=== PATIENT | male | born 1955 | race Caucasian/White ===

== ENCOUNTER 2018-02-28 16:48 | Emergency (ER) | payer BC, SELFPAY ==
[2018-02-28 16:49] VITALS: BP 120/71; PULSE 100; RESP 16; TEMP 36.6; O2SAT 95; BMI 33.7
[2018-02-28] MEDS: diazePAM 5 MG Tablet PO (17:08)
--- NOTE | 2018-02-28 17:11 | ED.DCSUM_ITS ---
- ER Visit Summary Date of Service: 02/28/18 Chief Complaint: Back pain History of Present Illness: The patient is a 62 M states that on Saturday of this week (postop day 2) he had spinal surgery by Dr. Vega at [facility]. He states that he had a fusion and spinal stenosis surgery. States he is doing well and today he was up and walking. He had a bowel movement yesterday. He arrived home around 1345 hrs. today. States he log rolled over and developed severe pain in the back. He notes intermittent spasms that are excruciating. He denies any radiculopathy. He states that he feels so much better than before the surgery. No fevers. Physical Examination: Afebrile vital signs are stable Gen: Well-nourished well-developed laying on his right side. Head: Normocephalic atraumatic Eyes: Perrl EOMI ENT: TMs clear no rhinorrhea moist mucous membranes Neck: Supple no lymphadenopathy no JVD nontender CVS: Regular rate rhythm no murmurs normal S1-S2 Respiratory: No distress clear to auscultation bilaterally chest nontender Abdomen: Soft nontender nondistended normal bowel sounds no masses Back: Back brace initially in place. Lumbar paraspinal musculature tender to palpation. Extremity: Nontender no edema Skin: Normal color no rash Neuro: alert orientated ?3 CN II-XII intact normal strength sensation Psych: Normal affect normal mood Test Results: [] Emergency Department Course and Treatment: IV was established and the patient received IV fluids, Dilaudid, Zofran, and Valium. Patient still is having back spasms. His pulse ox is down to 89% in between spasms and he was placed on supplemental oxygen. Spoke with the patient he like to be readmitted. I spoke with [facility] transfer line and Dr. Knight was covering his spinal surgeon. Plan is transfer. Impression: 1. Back spasms - status post spinal fusion This note was generated with [employer] dictation software. It may contain incorrect words, spelling, and punctuation that were not noted in review of the chart prior to signing ED Disposition - Plan for ED Patient: Chief Complaint: Back Referrals: Barak Du MD [Primary Care Provider] -
[2018-02-28] MEDS: HYDROmorphone 1 MG/ML Syringe IV (17:25)
[2018-02-28] MEDS: Ondansetron 4 MG/2 ML Vial IV (17:25)
[2018-02-28] MEDS: 0.9% Normal Saline 1,000 ML 150 ML IV (17:26)
[2018-02-28 17:33] LABS: Absolute Lymphocyte Count 1.36 X10^3/ul (0.83-4.51); Absolute Neutrophil Count 9.4 X10^3/uL (2.0-7.7); Basophil# 0.02 X10^3/uL; Basophil% 0.2 % (0-1); Eosinophil# 0.06 X10^3/uL; Eosinophils% 0.5 % (0-5); Hematocrit 38.6 % (40-54); Lymphocyte # 1.36 X10^3/ul (4.0); Lymphocyte % 11.2 % (19-41); Mean Corp Hgb Conc 33.7 g/gl (32-36); Mean Corpuscular Hgb 29.1 pg (27.0-32.0); Mean Corpuscular Volume 86.5 fL (80-94); Mean Platelet Vol. 9.4 fl (6.2-12.0); Monocyte# 1.33 X10^3/uL; Monocyte% 10.9 % (0-10); Neutrophil # 9.36 X10^3/uL (2.7-7.7); Neutrophil % 76.9 % (47-70); POSITIVE COUNT NO; POSITIVE DIFFERENTIAL NO; POSITIVE MORPHOLOGY NO; Platelet Count 201 K/mm3 (150-450); RBC Distribution Width CV 13.5 % (11.6-14.6); RBC Distribution Width SD 42.7 fl (35.1-43.9); Red Blood Count 4.46 M/mm3 (4.6-6.2); White Blood Count 12.2 K/mm3 (4.4-11.0)
[2018-02-28 18:15] LABS: Anion Gap 10 (5-15); BUN 13 mg/dL (7-18); BUN/Creat Ratio 14.9 RATIO (10-20); Calcium,Total 8.7 mg/dL (8.5-10.1); Chloride 100 mmol/L (98-107); Creatinine, Serum 0.87 mg/dL (0.70-1.30); EST Glomerular Filtration Rate 94 mL/min (>60); Est Glom Filt Rate - Afr Amer 113 mL/min (>60); Estimated Creatinine Clearance 82.99 ml/min; Glucose 192 mg/dL (74-106); Potassium 4.4 mmol/L (3.5-5.1); Sodium Level 135 mmol/L (136-145)
[2018-02-28 18:49] VITALS: BP 117/70; PULSE 107; RESP 18; O2SAT 95
[2018-02-28 19:53] VITALS: BP 154/81; PULSE 113; RESP 20; O2SAT 92
[2018-02-28 20:00] VITALS: BP 140/79; PULSE 115; RESP 22; O2SAT 92
== END 2018-02-28 20:45 | disposition short-term general hospital (02) ==
PROVIDERS: Emergency Provider Emergency Medicine; Family Provider Family Medicine; PCP Family Medicine
DX: M62.830 Muscle spasm of back (principal); Z98.890 Other specified postprocedural states; E66.9 Obesity, unspecified; E11.9 Type 2 diabetes mellitus without complications; Z79.4 Long term (current) use of insulin; Z79.891 Long term (current) use of opiate analgesic
CPT/HCPCS: 80048; 85025; 96361; 96374; 96375; 99285; J7030; A4216; J2405

== ENCOUNTER → 2018-11-03 08:09 | Outpatient (CLI) | payer BC, SELFPAY ==
[2018-11-03 09:37] LABS: Erythrocyte Sedimentation Rate 11 mm/hr (0-20)
[2018-11-03 09:39] LABS: Absolute Lymphocyte Count 1.84 X10^3/ul (0.83-4.51); Absolute Neutrophil Count 3.7 X10^3/uL (2.0-7.7); Basophil# 0.03 X10^3/uL; Basophil% 0.5 % (0-1); Eosinophil# 0.16 X10^3/uL; Eosinophils% 2.5 % (0-5); Hematocrit 45.8 % (40-54); Lymphocyte # 1.84 X10^3/ul (4.0); Lymphocyte % 28.9 % (19-41); Mean Corp Hgb Conc 32.8 g/gl (32-36); Mean Corpuscular Volume 88.6 fL (80-94); Mean Platelet Vol. 9.9 fl (6.2-12.0); Monocyte# 0.65 X10^3/uL; Monocyte% 10.2 % (0-10); Neutrophil # 3.66 X10^3/uL (2.7-7.7); Neutrophil % 57.4 % (47-70); Platelet Count 242 K/mm3 (150-450); RBC Distribution Width CV 13.5 % (11.6-14.6); RBC Distribution Width SD 43.6 fl (35.1-43.9); Red Blood Count 5.17 M/mm3 (4.6-6.2); White Blood Count 6.4 K/mm3 (4.4-11.0)
[2018-11-03 09:40] LABS: POSITIVE COUNT NO; POSITIVE DIFFERENTIAL NO; POSITIVE MORPHOLOGY NO
[2018-11-03 10:00] LABS: CRP < 2.90 mg/L (0.0-3.0)
[2018-11-04 20:07] LABS: PROEL- A/G Ratio 1.4 (0.7-1.7); PROEL- Alpha-1 Globulin 0.2 g/dL (0.0-0.4); PROEL- Alpha-2 Globulin 0.7 g/dL (0.4-1.0); PROEL- Beta Globulin 1.2 g/dL (0.7-1.3); PROEL- Gamma Globulin 0.7 g/dL (0.4-1.8); PROEL- Globulin, Total 2.8 g/dL (2.2-3.9); PROEL- TOTAL PROTEIN 6.8 g/dL (6.0-8.5)
== END ==
PROVIDERS: Family Provider Family Medicine; PCP Family Medicine; Referring Provider Nurse Practitioner; Visit Provider Nurse Practitioner
DX: M54.6 Pain in thoracic spine (principal); M89.8X9 Other specified disorders of bone, unspecified site
CPT/HCPCS: 36415; 84165; 85025; 85652; 86140

== ENCOUNTER → 2018-11-06 10:07 | Outpatient (CLI) | payer BC, SELFPAY ==
--- NOTE | 2018-11-06 10:12 | NM_ITS ---
CLINICAL: 62-year-old male with reported history of mid-lower back pain. WHOLE BODY 99m Tc MDP RADIONUCLIDE BONE SCINTIGRAPHY COMPARISON: None available FINDINGS: Following the intravenous administration of 28.0 mCi of 99m Tc MDP, whole body bone images reveal: 1. Increased radiopharmaceutical concentration is identified in the acromioclavicular compartments of both shoulders, right and left wrist articulations, the dorsal aspect of the left ankle, fifth lumbar vertebra. 2. The remaining skeletal structures are scintigraphically unremarkable with normal-appearing renal images and urinary bladder activity identified. NM/Bone Scan Whole Body IMPRESSION: 1. The increase in radiopharmaceutical concentration identified in the bilateral shoulder and wrist articulations, right ankle, the fifth lumbar vertebra is most consistent with degenerative arthritis. 2. There is no definitive typical scintigraphic evidence of skeletal metastatic disease on the current examination. Electronically Signed: Feliz Chase DO at 23:27 EST Tel , Service support ,
== END ==
PROVIDERS: Family Provider Family Medicine; PCP Family Medicine; Referring Provider Orthopaedic Surgery; Visit Provider Orthopaedic Surgery
DX: M54.6 Pain in thoracic spine (principal)
CPT/HCPCS: 78306

== ENCOUNTER → 2019-09-01 09:50 | Outpatient (CLI) | payer BC, SELFPAY ==
--- NOTE | 2019-09-01 09:55 | RAD_ITS ---
STUDY: X-RAY - THORACIC SPINE REASON FOR EXAM: Male, 63 years old. Pain x7 years getting worse TECHNIQUE: 3 view(s) of the thoracic spine were obtained. COMPARISON: None. FINDINGS: Normal kyphosis of the thoracic spine. There is no substantial scoliosis. Normal thoracic vertebrae and endplates. Normal disc space heights. Cannot exclude a sclerotic lesion within the T7 vertebral body best seen on the lateral view though this could represent an overlapping calcification within the mediastinum. The soft tissue structures are unremarkable. RAD/Thoracic Spine 3 Views IMPRESSION: No acute findings, possible sclerotic lesion within the T7 vertebral body Electronically Signed: Isaias James MD at 11:56 EST , Service support ,
== END ==
PROVIDERS: Family Provider Family Medicine; PCP Family Medicine; Referring Provider Nurse Practitioner Family; Visit Provider Nurse Practitioner Family
DX: M54.6 Pain in thoracic spine (principal)
CPT/HCPCS: 72072

== ENCOUNTER 2019-11-26 22:35 | Observation (INO) | payer BC, MEDICARE, SELFPAY ==
[2019-11-26 22:36] VITALS: BP 153/86; PULSE 86; RESP 18; TEMP 36.6; O2SAT 97; BMI 36.6
--- NOTE | 2019-11-26 22:56 | CT_ITS ---
HISTORY: VERTIGO Technique:CT Head or Brain W/O Contrast Injection Number of Images including paperwork:261 Comparison: None available. Findings: CT images of the head were obtained without contrast. Periventricular deep and subcortical white matter disease is present. Paranasal sinuses are clear. The brain is atrophic. Calcific ASCVD involves intracranial arteries. No acute intracranial edema or hemorrhage. No acute abnormality of orbits. Middle ear cavities and mastoid air cells are well aerated. Skull is normal. CT/Brain/Head without Contrast IMPRESSION: No acute intracranial abnormality. Chronic changes as above. ASPECT 10. Individualized dose optimization techniques were used for this CT. at 0004 Reported and signed by: Roel Haro MD Electronically Signed: Roel Haro MD at 0:03 EST Tel , Service support ,
--- NOTE | 2019-11-26 22:57 | EKG12_ITS ---
Test Reason : DIZZY Blood Pressure : / mmHG Vent. Rate : 076 BPM Atrial Rate : 076 BPM P-R Int : 174 ms QRS Dur : 074 ms QT Int : 360 ms P-R-T Axes : 021 -12 067 degrees QTc Int : 405 ms Normal sinus rhythm Nonspecific T wave abnormality Abnormal ECG Confirmed by XENA MORA, GUERO ([id number]), book or script editor AMNA MCNEIL ([id number]) on 11/30/2019 2:22:21 PM Referred By: MANN Confirmed By:CRISTINA MCCALLUM MD
--- NOTE | 2019-11-26 22:59 | ED.DCSUM_ITS ---
History of Present Illness Chief Complaint: Dizziness Informant: Patient, Family Onset: Today Current Severity: Moderate Maximum Severity: Moderate Narrative: Patient presents with dizziness and horizontal eye movements. He states he was sitting in his chair watching television when he suddenly started to feel dizzy. He states his eyes were moving side to side and he cannot control them. Symptoms seem to lenin. He went to bed after about rolled over in bed and symptoms became worsened. He states he had some dry heaves from the symptoms. He denies any recent illness or head injury. He denies history of vertigo. He has no headache. - Past Medical History (1) Diabetes Status: Chronic (2) Back pain Status: Chronic Past Medical History - Allergies and Home Meds Allergies/Adverse Reactions: Allergies metformin Allergy (Verified 11/26/19 22:39) Pain in joints Grciwwe-Phb-Crw Reductase Inhibitor Allergy (Verified 11/26/19 22:39) Pain in joints Prior records reviewed: Yes Lives: Spouse/ Significant Other Smoking Status: Never smoker Review of Systems General: Denies: Chills, Fever Eyes: Reports: - - Patient describes horizontal nystagmus. Denies: Visual changes - bilaterally ENT: Denies: Bilateral ear pain Cardiovascular: Denies: Chest pain, Palpitations Respiratory: Denies: Dyspnea, Cough Gastrointestinal: Denies: Abdominal pain, Nausea, Vomiting, Diarrhea Genitourinary: Denies: Dysuria Skin: Denies: Rash Neurological: Denies: Headache Psych: Denies: Depression Allergy: Denies: Uticaria Physical Exam Vital Signs/Narrative: Vital Signs Temp Pulse Resp BP Pulse Ox 11/26/19 22:36 97.9 F 86 18 153/86 H 97 Inital Vital Signs reviewed: Yes General: Well nourished, Well developed Head: Normocephalic ENT: Moist mucous membranes Neck: Supple Cardiovascular: Regular rate, Regular rhythm Respiratory: No distress, CTA bilaterally Abdomen: Soft, Nontender Extremities: Nontender Skin: Normal color, No rash Neurological: Alert, Oriented x3, Normal Strength, Normal Sensation, - - Normal svidws-la-escq testing. Psychological: Normal affect Diagnostic/Tx/Re-eval Impressions Brain CT 11/26/19 22:56 IMPRESSION: No acute intracranial abnormality. Chronic changes as above. ASPECT 10. Individualized dose optimization techniques were used for this CT. at 0004 Reported and signed by: Roel Haro MD Electronically Signed: Roel Haro MD at 0:03 EST Tel , Service support , 11/26/19 22:56 Brain/Head without Contrast [CT] Stat Laboratory Results 11/26/19 11/26/19 23:20 23:20 WBC 8.6 RBC 4.69 Hgb 13.8 Hct 41.6 MCV 88.7 MCH 29.4 MCHC 33.2 RDW Std Deviation 43.4 RDW Coeff of Te 13.4 Plt Count 284 MPV 9.6 Immature Gran % (Auto) 4.100 H Neut % (Auto) 62.0 Lymph % (Auto) 22.8 Bertie % (Auto) 8.5 Eos % (Auto) 1.9 Baso % (Auto) 0.7 Absolute Neuts (auto) 5.3 Absolute Lymphs (auto) 1.95 Nucleated RBC % 0 Sodium 138 Potassium 4.0 Chloride 106 Carbon Dioxide 26.0 Anion Gap 6 BUN 18 Creatinine 0.95 Estim Creat Clear Calc 74.00 Est GFR (MDRD) Af Amer 102 Est GFR (MDRD) Non-Af 84 BUN/Creatinine Ratio 19.0 Glucose 219 H Calcium 8.4 L - Medical Decision Making Patient was initially given IV fluids, Zofran, and Ativan. On repeat evaluation he reported nearly no improvement in his vertigo symptoms. He was given p.o. Antivert. After 40 minutes patient continues to have significant vertigo. I will speak with hospitalist regarding admission and further treatment. ED Disposition - Plan for ED Patient: Disposition: Acute Care Hospital [facility] Diagnosis: Vertigo
[2019-11-26] MEDS: 0.9% Normal Saline 1,000 ML 150 ML IV (23:19)
[2019-11-26] MEDS: Ondansetron 4 MG/2 ML Vial IV (23:20)
[2019-11-26] MEDS: LORazepam 2 MG/ML Syringe 0.5 MG IV (23:21)
[2019-11-26 23:33] LABS: Absolute Lymphocyte Count 1.95 X10^3/uL (0.83-4.51); Absolute Neutrophil Count 5.3 X10^3/uL (2.0-7.7); Basophil# 0.06 X10^3/uL; Basophil% 0.7 % (0-1); Eosinophil# 0.16 X10^3/uL; Eosinophils% 1.9 % (0-5); Hematocrit 41.6 % (40-54); Hemoglobin 13.8 g/dL (13.0-16.5); Lymphocyte # 1.95 X10^3/ul (4.0); Lymphocyte % 22.8 % (19-41); Mean Corp Hgb Conc 33.2 g/dL (32-36); Mean Corpuscular Hgb 29.4 pg (27.0-32.0); Mean Corpuscular Volume 88.7 fL (80-94); Mean Platelet Vol. 9.6 fl (6.2-12.0); Monocyte# 0.73 X10^3/uL; Monocyte% 8.5 % (0-10); NRBC Flagged by Analyzer 0 % (0-5); Neutrophil # 5.31 X10^3/uL (2.7-7.7); Platelet Count 284 K/mm3 (150-450); RBC Distribution Width CV 13.4 % (11.6-14.6); RBC Distribution Width SD 43.4 fl (35.1-43.9); Red Blood Count 4.69 M/mm3 (4.6-6.2); White Blood Count 8.6 K/mm3 (4.4-11.0)
[2019-11-26 23:48] LABS: Anion Gap 6 (5-15); BUN 18 mg/dL (7-18); Calcium,Total 8.4 mg/dL (8.5-10.1); Chloride 106 mmol/L (98-107); Creatinine, Serum 0.95 mg/dL (0.70-1.30); EST Glomerular Filtration Rate 84 mL/min (>60); Est Glom Filt Rate - Afr Amer 102 mL/min (>60); Glucose 219 mg/dL (74-106); Sodium Level 138 mmol/L (136-145)
[2019-11-27] VITALS (9 sets, daily range): BP systolic 115–165; BP diastolic 71–85; PULSE 72–93; RESP 16–17; TEMP 35.9–37; O2SAT 96–98; BMI 36.2; BMI 36.3
[2019-11-27] MEDS: Meclizine HCl 25 MG Tablet PO ×3 (00:28→13:17)
--- NOTE | 2019-11-27 01:16 | PCM.HP.STD ---
Problem List (1) Vertigo Status: Acute History of Present Illness Date of Admission: 11/27/19 Chief Complaint: vertigo The patient is a 64 year old M with a significant history of chronic back pain; hypertension and diabetes who presents emergency department with 1 day history of worsening vertigo. His vertiginous symptoms worsened when he moved in the bed. Associated with his symptoms is twitching of his eyes; and nausea with dry heaving. He denies any recent upper respiratory infection although. Although his reported that patient had nasal congestion and used nasal spray; patient reported that his nose has only been dry without any congestion. At the emergency department patient required Ativan; Antivert; ondansetron and Phenergan. CT of the head showed chronic changes without any acute abnormality. Past Medical History Past Medical History (Chronic Problems): Chronic Problems Diabetes (Chronic) Back pain (Chronic) Allergies metformin Allergy (Verified 11/26/19 22:39) Pain in joints Cyzhctn-Ear-Tls Reductase Inhibitor Allergy (Verified 11/26/19 22:39) Pain in joints Home Medications: Ambulatory Orders Medication Instructions Recorded Insulin Glargine,Hum.rec.anlog 50 unit SQ QHS 02/28/18 [Basaglar Kwikpen U-100] Losartan Potassium [Cozaar] 50 mg PO DAILY 02/28/18 Pioglitazone [Actos] 45 mg PO DAILY 02/28/18 Diclofenac Sodium 75 mg PO BID 11/26/19 Pregabalin [Lyrica] 100 mg PO BID 11/26/19 Surgical History: cholecystectomy, - - Spinal fusion. Lives: Spouse/ Significant Other Smoking Status: Never smoker Alcohol: None - *Family History Maternal History Items: Cancer - Lungs, Diabetes Paternal History Items: - - Reportedly his father left home when patient was 4 years old so patient does not know paternal medical history. Review of Systems Constitutional: Denies: Chills, Fever, Weight Change HEENT: Denies: Head Aches, Sinus Congestion, Sinus Drainage Cardiovascular: Denies: Chest Pain, Palpitations Respiratory: Denies: Cough, Shortness of breath at rest, Sputum production Gastrointestinal: Reports: Nausea. Denies: Abdominal Pain, Vomiting Genitourinary: Denies: Dysuria Musculoskeletal: Denies: Joint Pain, Joint Tenderness Skin: Denies: Rash, Wounds Neurological: Denies: Numbness, Tingling, Focal weakness Psychiatric: Denies: Anxiety, Depression, Homicidal Ideations, Suicidal Ideations Hematologic/ Lymphatic: Denies: Easy Bruising, Easy Bleeding VTE Information - Inpt Only VTE Present on Admission: No VTE Mechan Device Prophylaxis: None VTE Pharm Prophylaxis ordered?: Yes Patient Problems: Active and Suspected Problems Vertigo (Acute) - Physical Exam Vitals/I&O's: Vital Signs Temp Pulse Resp BP Pulse Ox 97.9 F 86 18 153/86 H 97 11/26/19 22:36 11/26/19 22:36 11/26/19 22:36 11/26/19 22:36 11/26/19 22:36 Oxygen Delivery Method Room Air Weight: 109.1 kg Body Mass Index (BMI) 36.6 General: Alert, Oriented x3, Cooperative HEENT: Atraumatic, PERRLA, EOMI, Normocephalic Neck: Supple, No JVD, Negative Carotid Bruits Lungs: Clear to auscultation, Normal air movement Cardiovascular: Regular rate, Regular Rhythm, Normal S1, Normal S2, No murmurs Abdomen: Bowel Sounds Present, Soft, Non Tender Extremities: No edema, Capillary Refill Less than 3 Seconds Skin: No rashes, No breakdown Musculoskeletal: No Tenderness to Palpation of Joints or Extremities Neurological: Cranial nerves II-XII grossly intact, - - Bee-Hallpike maneuver was not positive for nystagmus. However patient had intense vertigo with it. Even on sitting up on the bed patient had extreme vertigo. Psych/Mental Status: Normal Affect, Appropriate Laboratory Results 11/26/19 23:20: WBC 8.6, RBC 4.69, Hgb 13.8, Hct 41.6, MCV 88.7, MCH 29.4, MCHC 33.2, RDW Std Deviation 43.4, RDW Coeff of Te 13.4, Plt Count 284, MPV 9.6, Immature Gran % (Auto) 4.100 H, Neut % (Auto) 62.0, Lymph % (Auto) 22.8, [place] % (Auto) 8.5, Eos % (Auto) 1.9, Baso % (Auto) 0.7, Absolute Neuts (auto) 5.3, Absolute Lymphs (auto) 1.95, Nucleated RBC % 0 11/26/19 23:20: Sodium 138, Potassium 4.0, Chloride 106, Carbon Dioxide 26.0, Anion Gap 6, BUN 18, Creatinine 0.95, Estim Creat Clear Calc 74.00, Est GFR (MDRD) Af Amer 102, Est GFR (MDRD) Non-Af 84, BUN/Creatinine Ratio 19.0, Glucose 219 H, Calcium 8.4 L Current Medications Sodium Chloride () 1,000 mls @ 150 mls/hr IV .[id number] [facility] Last Admin: 11/26/19 23:19 Dose: 150 mls/hr Documented by: Assessment/Plan All Active Problems Vertigo (Acute) The patient is a 64 year old M with a significant history of chronic back pain; hypertension and diabetes who presents emergency department with intractable vertigo. Vertigo Most likely peripheral paroxysmal positional vertigo as it worsens when he turns in the bed. CT of the head showed chronic changes without any acute abnormality. Order MRI Schedule meclizine 3 times daily Valium5 mg PO Q8H PRN Zofran IV and Compazine IV for nausea or vomiting. Physical therapy to try Keila maneuver. Diabetes mellitus with hyperglycemia. Blood glucose on presentation was 219. Adjust home basal insulin in the hospital setting. Continue Actos. Add correction scale insulin. Accu-Chek QA CHS. Back pain Diclofenac 75 mg p.o. twice daily continued. Lyrica continued. Patient had spinal injection in his thoracic area 2 weeks ago. Hypertension On presentation blood pressure was not within goal Cozaar continued Trend blood pressure and adjust blood pressure medications. Obesity: BMI of 36.3; complicates care DVT prophylaxis Subcutaneous Lovenox. Code Visit OBSV E&M: 24994 Initial observation care L3
[2019-11-27] MEDS: proMETHazine 25 MG/ML Syringe 6.25 MG IV (01:19)
--- NOTE | 2019-11-27 02:30 | MRI_ITS ---
STUDY: MRI BRAIN WITHOUT CONTRAST REASON FOR EXAM: Male, 64 years old. VERTIGO since last night TECHNIQUE: Standardized multiplanar fat and water weighted pulse sequences were obtained. COMPARISON: CT 11/26/2019 FINDINGS: There is mild cerebral atrophy with widening of the extra-axial spaces and ventricular dilatation. Normal white matter tracts of the supratentorial brain. There is no evidence for recent intracranial ischemia or other cause of cytotoxic edema on diffusion weighted imaging (DWI). Normal T2* images of the brain without demonstrated susceptibility artifact. There is no demonstrated hemosiderin stain. Normal bilateral basal ganglia. Normal thalami. There is no extra-axial fluid accumulation. Normal flow voids within the major intracranial circulation suggesting patency by spin echo criteria. Normal sella turcica, pituitary gland, infundibular stalk, optic chiasm and hypothalamus. Normal tectal plate and pineal gland. Normal midbrain, marc and medulla. Normal cerebellum. Normal basal cisterns. Normal bilateral temporal bones. Normal bilateral internal auditory canals. No demonstrated orbital abnormality, within the constraints of a routine brain study. Normal visualized paranasal sinuses. Normal calvarium and skull base. Normal visualized soft tissue structures. Normal visualized upper cervical spine. MRI/Brain without Contrast IMPRESSION: Involutional changes of the brain, as described above. No acute infarct. Electronically Signed: Feliz Swanson MD at 13:18 EST Tel , Service support ,
[2019-11-27] MEDS: diazePAM 5 MG Tablet PO (02:56)
[2019-11-27 03:05] LABS: Bedside Glucose 247 mg/dL (70-110)
[2019-11-27] MEDS: 0.9% Saline Lock 10 ML Syringe IV (06:13)
[2019-11-27] MEDS: proCHLORPERazine 10 MG/2 ML Vial 5 MG IV (06:13)
[2019-11-27] MEDS: Insulin Lispro 100 UNIT/ML INSULN.PEN SC (06:19)
[2019-11-27 06:25] LABS: Bedside Glucose 162 mg/dL (70-110)
[2019-11-27 07:46] LABS: Absolute Lymphocyte Count 1.69 X10^3/uL (0.83-4.51); Absolute Neutrophil Count 5.6 X10^3/uL (2.0-7.7); Basophil# 0.06 X10^3/uL; Basophil% 0.7 % (0-1); Eosinophil# 0.14 X10^3/uL; Eosinophils% 1.7 % (0-5); Hematocrit 42.4 % (40-54); Hemoglobin 13.9 g/dL (13.0-16.5); Lymphocyte # 1.69 X10^3/ul (4.0); Lymphocyte % 20.3 % (19-41); Mean Corp Hgb Conc 32.8 g/dL (32-36); Mean Corpuscular Hgb 28.8 pg (27.0-32.0); Mean Platelet Vol. 9.6 fl (6.2-12.0); Monocyte# 0.57 X10^3/uL; Monocyte% 6.9 % (0-10); NRBC Flagged by Analyzer 0 % (0-5); Neutrophil # 5.58 X10^3/uL (2.7-7.7); Neutrophil % 67.2 % (47-70); Platelet Count 262 K/mm3 (150-450); RBC Distribution Width CV 13.4 % (11.6-14.6); RBC Distribution Width SD 43.6 fl (35.1-43.9); Red Blood Count 4.82 M/mm3 (4.6-6.2); White Blood Count 8.3 K/mm3 (4.4-11.0)
[2019-11-27 08:45] LABS: Anion Gap 5 (5-15); BUN 13 mg/dL (7-18); BUN/Creat Ratio 16.4 RATIO (10-20); Calcium,Total 8.6 mg/dL (8.5-10.1); Chloride 108 mmol/L (98-107); Creatinine, Serum 0.79 mg/dL (0.70-1.30); EST Glomerular Filtration Rate 104 mL/min (>60); Est Glom Filt Rate - Afr Amer 126 mL/min (>60); Glucose 135 mg/dL (74-106); Potassium 4.1 mmol/L (3.5-5.1); Sodium Level 140 mmol/L (136-145)
[2019-11-27] MEDS: Pioglitazone Hydrochloride 45 MG Tablet PO (09:50)
[2019-11-27] MEDS: Diclofenac 75 MG Tablet PO (09:50)
[2019-11-27] MEDS: Losartan Potassium 50 MG Tablet PO (09:50)
[2019-11-27] MEDS: Pregabalin 75 MG Capsule PO (09:50)
[2019-11-27] MEDS: Enoxaparin 40 MG/0.4 ML Syringe SC (09:53)
--- NOTE | 2019-11-27 14:25 | DCINST_ITS ---
- Discharge Diagnoses Current Active Problems: Current Active and Chronic Problems Vertigo (Acute) You will use the following diet at home:: Cardiac Your food should be the consistency of: Regular Your liquids should be the consistency of: Regular/Thin Discharge Activity: Return to Normal Activity Weight Bearing Status: Weight bearing as tolerated Call your doctor if you observe: Numbness or Tingling, Shortness of breath, Dizziness, Fainting spells, - - vertigo Instructions: Understanding Dizziness, Balance Problems, and Fainting, The Inner Ear: Understanding the Balance System, Inner Ear Problems: Causes of Dizziness (Vertigo), Managing Balance Problems: Vestibular Rehabilitation Therapy Additional Instructions: referred to PT/OT on outpatient basis for therapy for BPPV Allergies/Adverse Reactions: Allergies metformin Allergy (Verified 11/26/19 22:39) Pain in joints Tmindok-Lgb-Bgv Reductase Inhibitor Allergy (Verified 11/26/19 22:39) Pain in joints Medications to take at Discharge Insulin Glargine,Hum.rec.anlog [Basaglar Kwikpen U-100] 50 unit SQ QHS 02/28/18 Losartan Potassium [Cozaar] 50 mg PO DAILY 02/28/18 Pioglitazone [Actos] 45 mg PO DAILY 02/28/18 Diclofenac Sodium 75 mg PO BID 11/26/19 Pregabalin [Lyrica] 100 mg PO BID 11/26/19 Meclizine HCl [Antivert] 25 mg PO TID #30 tab 11/27/19 The following prescriptions were given: Meclizine HCl [Antivert] 25 mg PO TID #30 tab Transmission Status: Pending to [facility]/pharmacy #[id number] Primary Care Physician: Barak Du MD [Primary Care Provider] - Please follow up with your Primary Care Physician in: one week Test Results: Test results from this visit will be discussed in further detail at your follow- up appointment, if applicable. Proposed Discharge Date: 11/27/19
--- NOTE | 2019-11-27 14:28 | DS.PCM_ITS ---
Discharge Date and Diagnosis - Problem List Patient Problems: Active and Suspected Problems Vertigo (Acute) Date of Admission: 11/27/19 Date of Discharge: 11/27/19 - Primary Discharge Diagnosis Active and Suspected Problems Vertigo (Acute) BPPV - Secondary Discharge Diagnosis Chronic Problems Diabetes (Chronic) Back pain (Chronic) Hospital Course and Treatment Imaging Results: Diagnostic Data Brain CT 11/26/19 22:56 IMPRESSION: No acute intracranial abnormality. Chronic changes as above. ASPECT 10. Individualized dose optimization techniques were used for this CT. at 0004 Reported and signed by: Roel Haro MD Electronically Signed: Roel Haro MD at 0:03 EST Tel , Service support , Brain MRI 11/27/19 02:30 IMPRESSION: Involutional changes of the brain, as described above. No acute infarct. Electronically Signed: Feliz Swanson MD at 13:18 EST Tel , Service support , Operations: None Procedures: None Summary of Care Provided: The patient is a 64 year old M admitted through the ED on 11/27/2019 with a complaint of worsening vertigo of 1 day duration. Symptoms worsen when he moved his head and he also had twitching of his eyes and nausea with dry heaving. He denied any recent history of upper respiratory infection and denied any nausea, vomiting or diarrhea. CT of the head done in the ED was negative. He was admitted and managed for vertigo likely due to BPPV. He was started on Antivert, Zofran and Ativan. Patient had MRI of the brain on 12/26/2019 which was also negative for any infarct or any intracranial pathology. Symptoms were therefore thought to be due to BPPV. Patient was evaluated by physical therapy and was able to walk unaided and had no complaints. He was therefore discharged home on 11/27/2019 with a prescription for p.o. meclizine. He is to follow-up with his primary care doctor he was referred to physical therapy for vestibular rehabilitation. If symptoms persist, he was counseled to call his doctor or come back to the ED if they are severe. Patient seen and examined prior to discharge. He had no complaints and said dizziness was getting better. However it was precipitated by his attempts to sit up in bed or move his head from side to side. He denied any nausea vomiting or headache. He denied any focal weakness, numbness or tingling. Review of signs otherwise negative. Labs and vitals reviewed. Home medication reviewed and reconciled. o/e: Vital Signs Height 5 ft 8 in Weight: 238 lb 8.642 oz Weight in Pounds 238.5 lbs Pulse Ox 98 Temperature 97.7 F Pulse Rate 81 Respiratory Rate 16 Blood Pressure [BP] 154/80 Blood Pressure 150/81 Blood Pressure Position [BP] Semi-Fowlers Blood Pressure Position Semi-Fowlers [] Patient Problems: Active and Suspected Problems Vertigo (Acute) - Physical Exam Vitals/I&O's: Vital Signs Temp Pulse Resp BP Pulse Ox 97.7 F L 81 16 150/81 H 98 11/27/19 09:50 11/27/19 09:50 11/27/19 09:50 11/27/19 09:50 11/27/19 09:50 Oxygen Delivery Method Room Air Weight: 238 lb 8.642 oz Body Mass Index (BMI) 36.2 Intake and Output for Last 24 Hours 11/25/19 11/26/19 11/27/19 23:59 23:59 23:59 Intake Total 992.5 / 992.5 Balance 992.5 / 992.5 General: Alert, Oriented x3, Cooperative, No apparent distress HEENT: Atraumatic, PERRLA, EOMI, Normocephalic, - - horizontal nystagmus bilaterally Oral: Moist Mucosa Neck: Supple, No JVD, Negative Carotid Bruits Lungs: Clear to auscultation, Normal air movement Cardiovascular: Regular rate, Regular Rhythm, Normal S1, Normal S2, No murmurs Abdomen: Bowel Sounds Present, Soft, Non Tender, Non-Distended, No Hepato- splenomegaly Extremities: No clubbing, No cyanosis, No edema, Capillary Refill Less than 3 Seconds Skin: No rashes, No breakdown Musculoskeletal: No Tenderness to Palpation of Joints or Extremities Lymphatic: No Cervical, Supraclavicular, or Inguinal Adenopathy Neurological: Cranial nerves II-XII grossly intact, Neuro grossly intact, Motor Exam 5/5 strength throughout Psych/Mental Status: Normal Affect, Appropriate, Alert and oriented to time, place, person, mood and affect Laboratory Results 11/26/19 23:20: WBC 8.6, RBC 4.69, Hgb 13.8, Hct 41.6, MCV 88.7, MCH 29.4, MCHC 33.2, RDW Std Deviation 43.4, RDW Coeff of Te 13.4, Plt Count 284, MPV 9.6, Immature Gran % (Auto) 4.100 H, Neut % (Auto) 62.0, Lymph % (Auto) 22.8, Fleming % (Auto) 8.5, Eos % (Auto) 1.9, Baso % (Auto) 0.7, Absolute Neuts (auto) 5.3, Absolute Lymphs (auto) 1.95, Nucleated RBC % 0 11/26/19 23:20: Sodium 138, Potassium 4.0, Chloride 106, Carbon Dioxide 26.0, Anion Gap 6, BUN 18, Creatinine 0.95, Estim Creat Clear Calc 74.00, Est GFR (MDRD) Af Amer 102, Est GFR (MDRD) Non-Af 84, BUN/Creatinine Ratio 19.0, Glucose 219 H, Calcium 8.4 L 11/27/19 02:40: POC Glucose 247 H 11/27/19 06:18: POC Glucose 162 H 11/27/19 07:02: Sodium 140, Potassium 4.1, Chloride 108 H, Carbon Dioxide 27.0, Anion Gap 5, BUN 13, Creatinine 0.79, Estim Creat Clear Calc 70.30, Est GFR (MDRD) Af Amer 126, Est GFR (MDRD) Non-Af 104, BUN/Creatinine Ratio 16.4, Glucose 135 H, Calcium 8.6 11/27/19 07:02: WBC 8.3, RBC 4.82, Hgb 13.9, Hct 42.4, MCV 88.0, MCH 28.8, MCHC 32.8, RDW Std Deviation 43.6, RDW Coeff of Te 13.4, Plt Count 262, MPV 9.6, Immature Gran % (Auto) 3.200 H, Neut % (Auto) 67.2, Lymph % (Auto) 20.3, Fleming % (Auto) 6.9, Eos % (Auto) 1.7, Baso % (Auto) 0.7, Absolute Neuts (auto) 5.6, Absolute Lymphs (auto) 1.69, Nucleated RBC % 0 Current Medications Acetaminophen (Tylenol) 650 mg PO Q6H PRN PRN PRN Reason: Pain Score 1-10/Temp > 100.7 F Diazepam (Valium) 5 mg PO Q8H PRN PRN PRN Reason: VERTIGO Last Admin: 11/27/19 02:56 Dose: 5 mg Documented by: [facility] Last Admin: 11/27/19 09:50 Dose: 75 mg Documented by: Enoxaparin Sodium (Lovenox) 40 mg SC DAILY [facility] Last Admin: 11/27/19 09:53 Dose: 40 mg Documented by: Glucagon () 1 mg IM .X1 PRN PRN Reason: Hypoglycemia Dextrose (Dextrose 10%-Water) 250 mls @ 999 mls/hr IV .Q16M PRN; Protocol PRN Reason: HYPOGLYCEMIA Insulin Glargine (Lantus (Bkc)) 45 units SC QHS [facility] Insulin Human Lispro (Humalog Kwikpen ([facility])) 0 unit SC ACHS [facility]; Protocol Last Admin: 11/27/19 12:43 Dose: Not Given Documented by: Losartan Potassium (Cozaar) 50 mg PO DAILY [facility] Last Admin: 11/27/19 09:50 Dose: 50 mg Documented by: Meclizine HCl (Antivert) 25 mg PO TID [facility] Last Admin: 11/27/19 13:17 Dose: 25 mg Documented by: Ondansetron HCl (Zofran) 4 mg IV Q8H PRN PRN PRN Reason: NAUSEA/VOMITING Pioglitazone HCl (Actos) 45 mg PO DAILY [facility] Last Admin: 11/27/19 09:50 Dose: 45 mg Documented by: Pregabalin (Lyrica) 75 mg PO BID [facility] Last Admin: 11/27/19 09:50 Dose: 75 mg Documented by: Prochlorperazine Edisylate (Compazine Iv) 5 mg IV Q4H PRN PRN PRN Reason: Breakthrough Nausea/Vomiting Last Admin: 11/27/19 06:13 Dose: 5 mg Documented by: Sodium Chloride () 10 - 40 ml IV UD PRN PRN Reason: SALINE FLUSH Last Admin: 11/27/19 06:13 Dose: 10 ml Documented by: Discharge Diet: Low fat/ Low Cholesterol Discharge Activity: Return to Normal Activity Weight Bearing Status: Weight bearing as tolerated Call your doctor if you observe: Numbness or Tingling, Shortness of breath, Dizziness, Fainting spells, - - vertigo Home Medications: Medications to take at Discharge Insulin Glargine,Hum.rec.anlog [Basaglar Kwikpen U-100] 50 unit SQ QHS 02/28/18 Losartan Potassium [Cozaar] 50 mg PO DAILY 02/28/18 Pioglitazone [Actos] 45 mg PO DAILY 02/28/18 Diclofenac Sodium 75 mg PO BID 11/26/19 Pregabalin [Lyrica] 100 mg PO BID 11/26/19 Meclizine HCl [Antivert] 25 mg PO TID #30 tab 11/27/19 Following Prescrptions Were Given to Patient: Meclizine HCl [Antivert] 25 mg PO TID #30 tab Transmission Status: Pending to [id number] Primary Care Physician: Barak Du MD [Primary Care Provider] - Please follow up with your Primary Care Physician in: one week Patient Instructions: Understanding Dizziness, Balance Problems, and Fainting, The Inner Ear: Understanding the Balance System, Inner Ear Problems: Causes of Dizziness (Vertigo), Managing Balance Problems: Vestibular Rehabilitation Therapy Disposition: Home Minutes spent on discharge:: 35 Patient Condition:: Stable Medical Necessity - Tobacco Use Smoking Status: Never smoker Meaningful Use Info Meaningful Use Diagnoses (Choose all that apply): None applicable Code Visit OBSV E&M: 98351 Observ/hosp same date L2
--- NOTE | 2019-11-27 15:05 | CASEMGMT ---
Pt sent home with script for OP vestibular therapy for BPPV at this time. Ting MCKEON CM
== END 2019-11-27 14:27 | disposition home or self-care (01) ==
LOC: ED 23:08 → PCU 11-27 01:57
PROVIDERS: Admitting Provider Hospitalist; Emergency Provider Emergency Medicine; PCP Family Medicine; Visit Provider Student in an Organized Health Care Education/Training Program
DX: H81.10 Benign paroxysmal vertigo, unspecified ear (principal); G89.29 Other chronic pain; I10 Essential (primary) hypertension; E11.65 Type 2 diabetes mellitus with hyperglycemia; Z79.899 Other long term (current) drug therapy; Z79.4 Long term (current) use of insulin; E66.9 Obesity, unspecified; Z68.36 Body mass index [BMI] 36.0-36.9, adult; Z71.3 Dietary counseling and surveillance
CPT/HCPCS: 36415; 70450; 70551; 80048; 82962; 85025; 93005; 96361; 96372; 96374; 96375; 97161; 99218; 99285; J7030; A4216; G0378; J2405

== ENCOUNTER → 2020-04-29 17:30 | Outpatient (CLI) | payer BC, SELFPAY ==
[2019-11-27 02:13] VITALS: BMI 36.2
== END ==
PROVIDERS: PCP Family Medicine; Referring Provider Family Medicine; Visit Provider Family Medicine
DX: Z20.828 Contact with and (suspected) exposure to other viral communicable diseases (principal)
CPT/HCPCS: 87635; 94799; U0003